=== PATIENT | female | born 1985 | race Two or more races ===

== ENCOUNTER 2016-05-16 13:16 | Outpatient (CLI) | payer MEDICAID | END 2016-05-16 15:25 | disposition home or self-care (01) | LOC: FBC 13:16 → FBCOUT 13:16 | PROVIDERS: ATTEND Family Medicine | DX: O47.9 False labor, unspecified (principal); Z3A.00 Weeks of gestation of pregnancy not specified | CPT/HCPCS: 59025; 81002; G0463 ==

== ENCOUNTER 2016-05-31 19:25 | Inpatient (IN) | payer MEDICAID ==
[2016-05-31 21:20] VITALS: BMI 30.9
[2016-05-31] MEDS ORDERED: LIDOCAINE Viscous 2% 15 ML UDCUP ONE (21:26)
[2016-05-31] MEDS ORDERED: IV START KIT ONE (21:26)
[2016-05-31] MEDS ORDERED: OXYTOCIN 10 UNITS/ML VIAL ONE (21:26)
[2016-05-31] MEDS ORDERED: LIDOCAINE 1% (PRES FREE) 30 ML VIAL ONE (21:26)
[2016-05-31] MEDS ORDERED: MINERAL OIL 25 ML BOT ONE (21:26)
[2016-05-31] MEDS ORDERED: LACTATED RINGERS 1,000 ML ONE (21:26)
[2016-05-31] MEDS ORDERED: PUMP TUBING ONE (21:27)
[2016-05-31] MEDS ORDERED: OXYTOCIN IN LR 500 ML IV ONE ×2 (21:27→21:39)
[2016-05-31] MEDS ORDERED: SODIUM CHLORIDE 0.9% FLUSH 10 ML ONE (21:35)
[2016-05-31] MEDS ORDERED: LACTATED RINGERS 1,000 ML IV PRN (21:39)
[2016-05-31] MEDS ORDERED: LACTATED RINGERS 1,000 ML IV SCH (21:45)
[2016-05-31] MEDS ORDERED: PENICILLIN G POTASSIUM 5 MMU VIAL ONE (21:48)
[2016-05-31] MEDS ORDERED: NS 0.9% (MINI-BAG PLUS) 100 ML IV ONE (21:48)
[2016-05-31] MEDS ORDERED: PENICILLIN G POTASSIUM 5 MMU in NS 0.9% (MINI-BAG PLUS) 100 ML IV ONE (22:00)
[2016-05-31 22:04] LABS: ABSOLUTE NEUTROPHIL COUNT 6.4 K/mm3 (1.8-7.7); BASO % 0.3 % (0.2-1.0); EOS # 0.1 (0.0-0.5); EOS % 0.5 % (0.9-2.9); HEMATOCRIT 34.2 % (37.0-47.0); HEMOGLOBIN 10.7 gm/l (12.0-16.0); IMM NEUT% 0.4 % (0-1); LYMPH # 1.7 (1.0-4.8); LYMPH % 18.6 % (15-45); MEAN CELL VOLUME 80.1 fl (81.0-99.0); MEAN CORPUSCULAR HEMOGLOBIN 25.1 pg (27.0-31.0); MEAN CORPUSCULAR HGB CONC 31.3 g/dl (33.0-37.0); MEAN PLATELET VOLUME 12.1 fl (7.4-10.4); MONO # 0.9 (0.0-0.8); NEUT % 70.2 % (43-75); PLATELET COUNT 174 K/mm3 (130-400); RED CELL DISTRIBUTION WIDTH 14.5 % (11.5-14.5)
[2016-05-31 22:40] LABS: I-STAT CREATININE 0.4 mg/dL (0.6-1.3)
[2016-06-01] MEDS ORDERED: EPIDURAL PUMP SET ONE (01:39)
[2016-06-01] MEDS ORDERED: FENTANYL/ROPIVACAINE EPIDURAL 250 ML EP ONE (01:40)
[2016-06-01] MEDS ORDERED: PENICILLIN G 3 MIL UNIT PREMIX 50 ML IV ONE (01:47)
[2016-06-01] MEDS ORDERED: PENICILLIN G 3 MIL UNIT PREMIX 3 MMU in Premix (D5W) 50 ml 1 EACH IV SCH (02:00)
[2016-06-01] MEDS ORDERED: EPIDURAL PROCEDURE TRAY ONE (02:04)
[2016-06-01] MEDS: FENTANYL/ROPIVACAINE EPIDURAL 250 ML EP ONE ×2 (02:29→03:49)
[2016-06-01] MEDS ORDERED: OXYTOCIN IN LR 500 ML IV PRN (03:50)
--- NOTE | 2016-06-01 04:54 | PCMAN ---
OB Admission Note - History : 4 Term: 2 : 1 Abortions (S&E): 0 Livin Gestational Age (weeks): 39 Days (#/7): 4 Admit Cervical Dilation:: 4 Admit Cervical Effacement (%):: 50 Admit Station:: -2 Admit Presentaton:: vertex Membrane Status: Ruptured Contractions: Yes Contraction Frequency:: 4 min Heart Rate:: 140 Status:: cat 1 EFW:: 7 1/2 lbs Summary of Course:: uncomplicated course. early one hour gct abnormal, 3 hour normal times 2 OB hx: 10/28 2.7 kg , 10/01 3.4 kg , 05/10 3.9 kg PMH: none PSH: none meds: none SH: no tobacco, etoh or drugs - Labs Blood Type: A (+) positive Hct/Hgb:: Rubella Status: Immune GBS Status: Positive Abnormal Labs: None - Physical Exam Psych/Mental Status: Mood/Affect Appropriate Neurological: Alert HEENT: Atraumatic Lungs: Clear to Auscultation Bilaterally Cardiovascular: Regular Rate and Rhythm Abdomen: Normal Bowel Sounds, Obese Rectal Exam: Deferred Skin: Normal Color - Problems (1) Active labor at term Status: Acute Code: [id number]/Plan: anticipate desires epidural FWB reassuring cat 1
--- NOTE | 2016-06-01 04:58 | PCMDEL ---
Delivery Note - Labor 1st stage (hr/min):: 3 hours 2nd stage (hr/min):: 1 hour 6 min 3rd stage (hr/min):: 4 min Total (hr/min):: 4 hours and 10 min Pushed (hr/min):: 1 hour 6 min - Delivery Delivery (Date): 06/01/16 Delivery (Time): 04:35 Gender: Female Presentation: Cephalic Umbilical Cord: 3 Vessel Delayed Cord Clamping:: < 1-2 min 1 Minute Total: 8 5 Minute Total: 9 Placenta:: normal EBL:: 500 Perineum:: intact Suture:: n/a Anesthesia/Meds:: epidural Length ROM:: 4 hours Comments:: , required some stimulation, but no PPV or oxygen, thin meconium. mild atony responded to pitocin and misoprostil.
[2016-06-01] MEDS ORDERED: LANOLIN 50 APPLIC/7G TUBE TP PRN (05:02)
[2016-06-01] MEDS ORDERED: BENZOCAINE/MENTHOL 60 APPLIC/BOT TP PRN (05:02)
[2016-06-01] MEDS ORDERED: MISOPROSTOL 200 MCG TABLET PR ONE (05:06)
[2016-06-01] MEDS: IBUPROFEN 800 MG TABLET PO PRN ×2 (05:37→13:14)
[2016-06-01] MEDS: DOCUSATE SODIUM 100 MG CAPSULE PO SCH (08:28)
[2016-06-01] MEDS: HYDROCODONE/ACETAMINOPHEN 5/325MG TABLET PO PRN ×2 (08:30→18:39)
[2016-06-01 17:34] LABS: ALB/GLOB RATIO 0.9 (>1.0); ALBUMIN 3.3 gm/dL (3.5-5.7); CALCIUM 8.9 mg/dL (8.6-10.3); URIC ACID 2.8 mg/dL (2.3-7.6)
[2016-06-02] MEDS: IBUPROFEN 800 MG TABLET PO PRN ×2 (02:48→10:15)
[2016-06-02] MEDS: HYDROCODONE/ACETAMINOPHEN 5/325MG TABLET PO PRN ×2 (02:49→10:15)
[2016-06-02 05:55] LABS: HEMATOCRIT 27.1 % (37.0-47.0); HEMOGLOBIN 8.3 gm/l (12.0-16.0)
[2016-06-02] MEDS: LACTATED RINGERS 1,000 ML IV SCH ×2 (08:25→10:08)
[2016-06-02] MEDS: DOCUSATE SODIUM 100 MG CAPSULE PO SCH (10:15)
[2016-06-02] MEDS ORDERED: SPINAL PROCEDURAL TRAY 1 EACH ONE (12:38)
[2016-06-02] MEDS ORDERED: BUPIVACAINE 0.75% SPINAL AMPUL 2 ML ONE (12:38)
[2016-06-02] MEDS ORDERED: IBUPROFEN 800 MG TABLET PO PRN (13:53)
[2016-06-02] MEDS ORDERED: HYDROCODONE/ACETAMINOPHEN 5/325MG TABLET PO PRN (13:53)
[2016-06-02] MEDS ORDERED: DOCUSATE SODIUM 100 MG CAPSULE PO PRN (13:53)
[2016-06-02] MEDS ORDERED: BENZOCAINE/MENTHOL 60 APPLIC/BOT TP PRN (13:53)
[2016-06-02] MEDS ORDERED: LANOLIN 50 APPLIC/7G TUBE TP PRN (13:53)
--- NOTE | 2016-06-02 14:09 | PCMBTL ---
Brief Post Op Note: Date of Procedure: 06/02/16 Start Time: 1301 Preoperative Diagnosis: 1. Multiparity, undesired fertility Postoperative Diagnosis: 1. Same Procedure: Bilateral Tubal Ligation Surgeon: Suha Villatoro MD Anesthesia: Spinal, James Landis MD Findings: normal fundus and tubes Condition: Stable Complications: None IV Fluids: 500 mLs of LR Urine Output: voided prior to procedure Estimated Blood Loss: 5 mLs Specimens: Segments of bilateral fallopian tubes DESCRIPTION OF PROCEDURE: After informed consent was obtained, the patient was taken to the operating room and prepped and draped for an abdominal procedure. A time out procedure was performed. Spinal anesthesia was found to be adequate. An infraumbilical incision was made and carried down sharply to the fascia with a scalpel and [place] scissors. The peritoneum was entered sharply. An Joseph O retractor was inserted. The left fallopian tube was identified and brought into the operating field with a Natan clamp. A mid-portion of the tube was ligated times two, excised, and the ostia were identified and cauterized with a Bovie. The tube was returned to the abdomen. The same procedure was repeated on the right fallopian tube. Ostia were identified and cauterized. The tube was returned to the abdomen. The Joseph O retractor was removed. The fascia was reapproximated with 2-0 Vicryl. The skin was reapproximated with 4-0 Vicryl. A bandage was applied to the incision. The patient tolerated the procedure well and went to recovery in stable condition.
--- NOTE | 2016-06-02 14:12 | PDOC44 ---
- Subjective Day: 1 Patient doing well. Has been NPO for her tubal. She reports pain is controlled on medication. She is BF. We discussed the risks of Bilateral tubal ligation, including bleeding, infection, chance of failure and risk of ectopic if failure were to occur, which would necessitate further procedures. She verbalized understanding and would like to proceed with the tubal. Her hgb dropped to 8, but she is asymptomatic. Denies dizziness with ambulation. Reports Flatus, Reports Pain Tolerable, Reports , Reports Lochia Light, Denies Nausea, Denies Vomiting - Objective Temp Pulse Resp BP Pulse Ox 98.4 F 84 18 126/69 06/02/16 08:00 06/02/16 08:00 06/02/16 08:00 06/02/16 08:00 Lab Results 06/02/16 05/31/16 05:30 21:35 Hgb 8.3 L D Hct 27.1 L Creatinine 0.5 L Uric Acid 2.8 AST 13 ALT 9 Lactate Dehydrogenase 168 05/31/16 21:35 Anion Gap 20 H Estimated GFR 147 H Alkaline Phosphatase 208 H Albumin 3.3 L Globulin 3.6 H Albumin/Globulin Ratio 0.9 L Current Medications Generic Name Dose Route Start Last Admin Trade Name Freq PRN Reason Stop Dose Admin Acetaminophen/Hydrocodone Bitart 1 - 2 tab 06/01/16 05:02 06/02/16 10:15 [place] 5/325 PO 2 tab Q4H PRN Administration Pain (Moderate) Benzocaine/Menthol 1 applic 06/01/16 05:02 06/01/16 05:37 Dermoplast TP 1 bot PRN PRN Administration Patient Comfort Docusate Sodium 100 mg 06/02/16 13:53 Colace PO DAILY PRN Comfort Emollient Ointment 1 applic 06/01/16 05:02 06/02/16 11:29 Agt-H-Jawkqg TP 1 tube PRN PRN Administration sore nipples Lactated Ringer's 1,000 mls @ 125 mls/hr 06/02/16 05:00 06/02/16 10:08 Lactated Ringers IV 125 mls/hr .Q8H SOPHIA Administration Ibuprofen 800 mg 06/01/16 05:02 06/02/16 10:15 Motrin PO 800 mg Q6H PRN Administration Pain (Mild) Oxycodone/Acetaminophen 1 - 2 tab 06/02/16 13:53 Percocet 5/325 PO Q4H PRN Pain (Moderate) Sodium Chloride 10 ml 06/01/16 05:02 06/02/16 08:02 Normal Saline 10ml Flush IV 10 ml PRN PRN Administration IV Flush Sodium Chloride 10 ml 06/02/16 17:00 Normal Saline 10ml Flush IV Q8HR SOPHIA - Physical Exam General: Afebrile, No Acute Distress Psych/Mental Status: Mood/Affect Appropriate, Bonding Well Neurological: Alert, Normal Gait, Normal Speech Lungs: Clear to Auscultation Bilaterally, Normal Air Movement Cardiovascular: Regular Rate and Rhythm, Normal S1, Normal S2 Breast: Nipples Intact Fundus: Firm, Midline Extremities: Full ROM, No Edema, No Tenderness Skin: Normal Color, Warm, Dry, Intact, No Rash - Problems:Assessment/Plan (1) Normal vaginal delivery Status: AcuteAssessment/Plan: Doing well Ready for BTL this afternoon BF support Anticipate d/c tomorrow Hgb 8, but patient asymptomatic. Will start iron. Disposition: Stable, Anticipate DC Home Tomorrow
[2016-06-02] MEDS: OXYCODONE/ACETAMINOPHEN 5/325 MG TABLET PO PRN ×2 (14:46→20:20)
[2016-06-02] MEDS: IBUPROFEN 600 MG TABLET PO PRN (17:09)
[2016-06-02] MEDS: FERROUS SULFATE (65 Fe) 325 MG TABLET PO SCH (21:13)
[2016-06-03] MEDS: IBUPROFEN 600 MG TABLET PO PRN ×2 (03:06→10:11)
[2016-06-03] MEDS: OXYCODONE/ACETAMINOPHEN 5/325 MG TABLET PO PRN ×2 (03:06→10:11)
[2016-06-03 06:45] LABS: HEMATOCRIT 27.1 % (37.0-47.0); HEMOGLOBIN 8.1 gm/l (12.0-16.0)
[2016-06-03 07:30] VITALS: BP 118/82
[2016-06-03] MEDS: FERROUS SULFATE (65 Fe) 325 MG TABLET PO SCH (10:11)
[2016-06-03] MEDS: LACTATED RINGERS 1,000 ML IV SCH (10:19)
--- NOTE | 2016-06-03 11:02 | PDOC39B ---
Hospital Course: ADMIT DATE: 05/31/16 DISCHARGE DATE: 06/03/16 ADMISSION DIAGNOSES: Intrauterine at term, undesired fertility PROCEDURES: bilateral tubal ligation HISTORY OF PRESENT ILLNESS: 30 year old G4 T2 L1 at 39 weeks 5 days presented in active labor. HOSPITAL COURSE: The patient had normal vaginal delivery on 06/01/16 and a tubal ligation on 06/02/16. By day of discharge the patient is ambulating, eating, voiding, and passing flatus without difficulty. Pain is controlled and lochia is appropriate. She is with some difficulty due to infant latch. Pt will be pumping and giving back EBM x24h, then plans to restart . - Physical Exam Vital Signs: Temp Pulse Resp BP Pulse Ox 98.2 F 74 18 118/82 06/03/16 07:30 06/03/16 07:30 06/03/16 07:30 06/03/16 07:30 General: Afebrile Psych/Mental Status: Mood/Affect Appropriate, Bonding Well Neurological: Grossly Intact, Alert Lungs: Clear to Auscultation Bilaterally, Normal Air Movement Cardiovascular: Regular Rate and Rhythm, Normal S1, Normal S2, No Murmur Breast: Nipples Cracked Fundus: Firm, Midline, Below Umbilicus Wound: Well Approximated - Discharge Diagnosis (1) S/P tubal ligation Status: AcuteAssessment/Plan: doing well incision check in 2 weeks (2) Normal vaginal delivery Status: AcuteAssessment/Plan: Doing well BF support: plan to pump x24h to allow nipple rest, then will restart at home (3) Anemia due to acute blood loss Status: AcuteAssessment/Plan: Asx, stable at 8. Continue iron BID - Discharge Plan Condition: Stable Disposition: Home Instruction Forms: Vaginal Discharge Instructions Follow-Up: Carmencita Salmeron MD [Primary Care Provider] - In 2 weeks (incision check)
--- NOTE | 2016-06-06 13:20 | SURGPATH ---
[facility] [address] [place] [id number] Patient Name: NAMAN SOLORZANO MR#: [id number] : 1985 Gender: F Specimen #: [id number] Collected: 06/02/2016 Received: 06/05/2016 Reported: 06/06/2016 Submitting Phys: JAIRO BURROWS Copy To Phys: [facility] BRENTON QUINTANILLA Clinical History / Pre-Operative Diagnosis: bilateral tubal ligation, elective sterilization Specimen Source / Surgical Procedure Performed: Bilateral fallopian tube segments Interpretation: FALLOPIAN TUBES, RIGHT AND LEFT, TUBAL LIGATION: - COMPLETE CROSS SECTIONS OF RIGHT AND LEFT FALLOPIAN TUBES Electronically Signed Out Theresa Leary M.D. Gross Description: The specimen is received in formalin labeled with the patient's name and "fallopian tube segments". The specimen consists of two 1.5 cm non-fimbriated tubal segments. The right has a suture and is marked with black ink for identification. [employer] submitted in one cassette. RUBEN Lynn Microscopic Description: Complete cross-sections of inked and uninked fallopian tubes are seen, without significant pathologic changes, after reorientation and reimbedding. Decidualized stroma is seen. 1: 61132(7) Z30.2
== END 2016-06-03 12:42 | disposition home or self-care (01) | DRG 767 ==
LOC: FBC 19:25 → FBCOUT 19:25 → FBC 21:40 → FBCOUT 21:40
PROVIDERS: ADMIT Family Medicine; ATTEND Family Medicine
PROC: 10E0XZZ Delivery of Products of Conception, External Approach (ICD-10-PCS; principal; 2016-06-01)
PROC: 00HU33Z Insertion of Infusion Device into Spinal Canal, Percutaneous Approach (ICD-10-PCS; 2016-06-01)
PROC: 0UB70ZZ Excision of Bilateral Fallopian Tubes, Open Approach (ICD-10-PCS; 2016-06-02)
DX: O99.824 Streptococcus B carrier state complicating childbirth (principal); D62 Acute posthemorrhagic anemia; O62.2 Other uterine inertia; Z37.0 Single live birth; O77.0 Labor and delivery complicated by meconium in amniotic fluid; O90.81 Anemia of the puerperium; Z3A.39 39 weeks gestation of pregnancy; Z30.2 Encounter for sterilization